=== PATIENT | male | born 1990 | race Caucasian/White ===

== ENCOUNTER 2016-07-03 15:54 | Emergency (ER) | payer OTHER ==
[~2016-07-03] VITALS: Ht 175.3 cm; Wt 71.5 kg
[2016-07-03 16:03] VITALS: TEMP 36.5; Ht 175.3 cm; Wt 71.5 kg
--- NOTE | 2016-07-03 17:29 | EMERGENCY ROOM VISIT NOTE ---
History First contact with patient: 16:54 Chief Complaint: ABDOMINAL PAIN Stated Complaint: STOMACH PAIN, BLOATING Nursing Triage Summary: abd pain since sat night, c/o bloating and nausea, normal bm yesterday History of Present Illness The patient is a 25 year old male who presents to the Emergency Room with complaints of 4 day hx of abdominal pain. Patient reports initial symptoms started 06/30 with generalized abdominal pain, reflux symptoms. Pain was constant 5-6 /10 pain worse with movement, bending over. no association with eating. 07/01, worsening abdominal pain ,nausea, bodyache, chills ( no fever). By that evening symptoms resolved except for abdominal pain, nausea, and dec'd appetite. He tried Ibuprofen 600 mg with minimal relief. Patient went initially to [place] for evaluation. He was given Mg sulfate, Zofran and then sent home. Today his pain worsened in intensity up to 8/10 intensity and his more localized to the left of umbilicus down towards LLQ in addition to RLQ pain. NO change in stool, no urinary symptoms, upper respiratory symptoms. Review of Systems See HPI for pertinent positives & negatives. A total of 10 systems reviewed and were otherwise negative. Past Medical/Surgical History Medical Problems: (1) No chronic problems Prostatitis Social History Smoking Status: Never Smoker Current/Historical Medications No Active Prescriptions or Reported Meds Allergies Coded Allergies: No Known Allergies (Unverified , 07/03/16) Physical Exam Vital Signs Date Time Temp Pulse Resp B/P Pulse Ox O2 Delivery O2 Flow Rate FiO2 07/03/16 19:26 50 16 107/66 98 Room Air 07/03/16 17:53 59 16 118/78 99 Room Air 07/03/16 16:03 36.5 77 18 121/72 96 Room Air Physical Exam GENERAL: alert, well appearing, well nourished, no distress, non-toxic EYE EXAM: normal conjunctiva, PERRL and EOM's grossly intact OROPHARYNX: no exudate, no erythema, lips, buccal mucosa, and tongue normal and mucous membranes are moist NECK: supple, no nuchal rigidity, no adenopathy, non-tender LUNGS: Clear to auscultation. Normal chest wall mechanics HEART: no murmurs, S1 normal and S2 normal ABDOMEN: abdomen soft, mod tenderness to palpation LLQ , normo-active bowel sounds, no masses, no rebound or guarding. SKIN: no rashes and no bruising UPPER EXTREMITIES: upper extremities are grossly normal. LOWER EXTREMITIES: No pitting edema. Medical Decision & Procedures ER Provider Diagnostic Interpretation: ABDOMEN AND PELVIS CT WITHOUT CONTRAST CT DOSE: 504.67 mGy.cm HISTORY: LLQ Left flank pain TECHNIQUE: Multiaxial CT images of the abdomen and pelvis were performed without the use of intravenous and oral contrast according to the standard department stone protocol. COMPARISON STUDY: None. FINDINGS: The lung bases are clear. The unenhanced liver, gallbladder, spleen, pancreas, and adrenal glands are unremarkable. No renal stones or hydronephrosis. There is suboptimal evaluation for bowel pathology due to the lack of intravenous and oral contrast. However, there is no definite bowel wall thickening or obstruction. Normal appendix. Tiny fat-containing umbilical hernia. The pelvic organs are unremarkable. No suspicious lytic or blastic osseous lesions. IMPRESSION: No renal stones or hydronephrosis. Laboratory Results 07/03/16 17:53 Red Blood Count 4.93, Mean Corpuscular Volume 85.4, Mean Corpuscular Hemoglobin 30.6, Mean Corpuscular Hemoglobin Concent 35.9, Mean Platelet Volume 10.0, Neutrophils (%) (Auto) 50.1, Lymphocytes (%) (Auto) 34.4, Monocytes (%) (Auto) 12.6, Eosinophils (%) (Auto) 2.3, Basophils (%) (Auto) 0.4, Neutrophils # (Auto ) 2.39, Lymphocytes # (Auto) 1.64, Monocytes # (Auto) 0.60, Eosinophils # (Auto ) 0.11, Basophils # (Auto) 0.02 07/03/16 17:53 Test 07/03/16 17:50 07/03/16 17:53 Urine Color YELLOW Urine Appearance CLEAR (CLEAR) Urine pH 7.5 (4.5-7.5) Urine Specific [place] 1.024 (1.000-1.030) Urine Protein NEG (NEG) Urine Glucose (UA) NEG (NEG) Urine Ketones NEG (NEG) Urine Occult Blood NEG (NEG) Urine Nitrite NEG (NEG) Urine Bilirubin NEG (NEG) Urine Urobilinogen NEG (NEG) Urine Leukocyte Esterase NEG (NEG) White Blood Count 4.77 K/uL (4.8-10.8) Red Blood Count 4.93 M/uL (4.7-6.1) Hemoglobin 15.1 g/dL (14.0-18.0) Hematocrit 42.1 % (42-52) Mean Corpuscular Volume 85.4 fL (80-100) Mean Corpuscular Hemoglobin 30.6 pg (25-34) Mean Corpuscular Hemoglobin Concent 35.9 g/dl (32-36) Platelet Count 173 K/uL (130-400) Mean Platelet Volume 10.0 fL (7.4-10.4) Neutrophils (%) (Auto) 50.1 % Lymphocytes (%) (Auto) 34.4 % Monocytes (%) (Auto) 12.6 % Eosinophils (%) (Auto) 2.3 % Basophils (%) (Auto) 0.4 % Neutrophils # (Auto) 2.39 K/uL (1.4-6.5) Lymphocytes # (Auto) 1.64 K/uL (1.2-3.4) Monocytes # (Auto) 0.60 K/uL (0.11-0.59) Eosinophils # (Auto) 0.11 K/uL (0-0.5) Basophils # (Auto) 0.02 K/uL (0-0.2) RDW Standard Deviation 37.3 fL (36.4-46.3) RDW Coefficient of Variation 12.0 % (11.5-14.5) Immature Granulocyte % (Auto) 0.2 % Immature Granulocyte # (Auto) 0.01 K/uL (0.00-0.02) Anion Gap 7.0 mmol/L (3-11) Est Creatinine Clear Calc Drug Dose 102.7 ml/min Estimated GFR () 107.6 Estimated GFR (Non- 92.8 BUN/Creatinine Ratio 13.3 (10-20) Calcium Level 9.0 mg/dl (8.5-10.1) Total Bilirubin 0.4 mg/dl (0.2-1) Direct Bilirubin mg/dl (0-0.2) Aspartate Amino Transf (AST/SGOT) 25 U/L (15-37) Alanine Aminotransferase (ALT/SGPT) 23 U/L (12-78) Alkaline Phosphatase 66 U/L (45-117) Total Protein 7.4 gm/dl (6.4-8.2) Albumin 3.9 gm/dl (3.4-5.0) Lipase 125 U/L (73-393) Chemistry Specimen Hemolysis Medications Administered Medications (Trade) Dose Ordered Sig/[place] Route Start Time Stop Time Status Last Admin Dose Admin Ketorolac Tromethamine 10 mg 10 mg NOW STAT IV 07/03/16 18:02 07/03/16 18:05 DC 07/03/16 18:49 10 MG Sodium Chloride (Nss 1000ml) 1,000 ml @ 125 mls/hr Q8H ONCE IV 07/03/16 18:15 07/03/16 20:23 DC 07/03/16 18:48 125 MLS/HR Ondansetron HCl (Zofran 8mg Iv) 4 mg NOW ONCE IV 07/03/16 18:15 07/03/16 18:16 DC 07/03/16 18:48 4 MG Medical Decision Differential diagnoses includes but is not limited to gastritis, peptic ulcer disease, GERD, gallbladder disease, pancreatitis, small bowel obstruction, acute coronary syndrome, pericarditis, ischemic bowel, irritable bowel disease, irritable bowel syndrome, appendicitis, diverticulitis, malignancy, hernia, urinary tract infection, torsion, , perforation, trauma, infectious. 25 yo M p/w 4 day hx of abdominal pain , n/v ,afebrile, RLQ, LLQ tenderness on exam . -CBC, PRP, UA unremarkable, Lipase negative -CT abdomen: no definite bowel wall thickening or obstruction. Normal appendix. Tiny fat-containing umbilical hernia. The pelvic organs are unremarkable. No suspicious lytic or blastic osseous lesions. No renal stones or hydronephrosis. -Given [place] NS, IV Zofran 4 mg x1, 10 mg IV Toradol x1 -Upon reevaluation, the patient is feeling better. I discussed the findings and the treatment plan with the patient. HE verbalizes agreement and understanding. He was discharged home with outpatient PCP followup Impression Primary Impression: Left lower quadrant pain Departure Information Dispostion Home / Self-Care Condition GOOD Prescriptions No Active Prescriptions or Reported Meds Referrals No Doctor, Assigned (PCP) Patient Instructions My [facility] Resident Tracking Resident Involvement: Resident Care Provided Care Provided: Adult ED
[2016-07-03] MEDS ORDERED: KETOROLAC TROMETHAMINE 30 MG/ML VIAL IV STA (18:02)
[2016-07-03 18:05] LABS: BASO % 0.4 %; BASO ABS # 0.02 K/uL (0-0.2); COMPLETE YES; EOS % 2.3 %; HEMATOCRIT 42.1 % (42-52); IG% 0.2 %; LYMPH % 34.4 %; LYMPH ABS # 1.64 K/uL (1.2-3.4); MEAN CELL VOLUME 85.4 fL (80-100); MEAN CORPUSCULAR HEMOGLOBIN 30.6 pg (25-34); MEAN CORPUSCULAR HGB CONC 35.9 g/dl (32-36); MONO % 12.6 %; NEUT % 50.1 %; PLATELET COUNT 173 K/uL (130-400); RED BLOOD COUNT 4.93 M/uL (4.7-6.1); WHITE BLOOD COUNT 4.77 K/uL (4.8-10.8)
[2016-07-03] MEDS ORDERED: SODIUM CHLORIDE 0.9% 1000ML 1,000 ML IV ONE (18:15)
[2016-07-03] MEDS ORDERED: ONDANSETRON 8 MG/54 ML D5W IV ONE (18:15)
[2016-07-03 18:16] LABS: URINE APPEARANCE CLEAR (CLEAR); URINE BILIRUBIN NEG (NEG); URINE COLOR YELLOW; URINE NITRITE NEG (NEG); URINE PH 7.5 (4.5-7.5); URINE SPECIFIC GRAVITY 1.024 (1.000-1.030); UROBILINOGEN NEG (NEG); ZZUR CULT IF INDIC CLEAN CATCH NO
[2016-07-03 18:24] LABS: MANUAL MICROSCOPIC REQUIRED? NO; REVIEW REQ? NO
--- NOTE | 2016-07-03 18:25 | DIAGNOSTIC IMAGING REPORT ---
ABDOMEN AND PELVIS CT WITHOUT CONTRAST CT DOSE: 504.67 mGy.cm HISTORY: LLQ Left flank pain TECHNIQUE: Multiaxial CT images of the abdomen and pelvis were performed without the use of intravenous and oral contrast according to the standard department stone protocol. COMPARISON STUDY: None. FINDINGS: The lung bases are clear. The unenhanced liver, gallbladder, spleen, pancreas, and adrenal glands are unremarkable. No renal stones or hydronephrosis. There is suboptimal evaluation for bowel pathology due to the lack of intravenous and oral contrast. However, there is no definite bowel wall thickening or obstruction. Normal appendix. Tiny fat-containing umbilical hernia. The pelvic organs are unremarkable. No suspicious lytic or blastic osseous lesions. IMPRESSION: No renal stones or hydronephrosis. Electronically signed by: Eddie Wheeler M.D. 07/03/2016 6:24 PM Dictated Date/Time: 07/03/2016 6:15 PM
[2016-07-03 18:29] LABS: ALKALINE PHOSPHATASE 66 U/L (45-117); ALT/SGPT 23 U/L (12-78); AST/SGOT 25 U/L (15-37); BLOOD UREA NITROGEN 15 mg/dl (7-18); BUN/CREATININE RATIO 13.3 (10-20); CARBON DIOXIDE 28 mmol/L (21-32); CHLORIDE 106 mmol/L (98-107); GLUCOSE 88 mg/dl (70-99); SODIUM 141 mmol/L (136-145)
[2016-07-03 19:26] VITALS: BP 107/66; PULSE 50; O2SAT 98
--- NOTE | 2016-07-03 22:34 | EMERGENCY ROOM VISIT NOTE ---
History Report prepared by Janis: Marcella Baron Under the Supervision of: Dr. Christoph Acosta M.D. First contact with patient: 16:53 Chief Complaint: ABDOMINAL PAIN Stated Complaint: STOMACH PAIN, BLOATING Nursing Triage Summary: abd pain since sat night, c/o bloating and nausea, normal bm yesterday History of Present Illness The patient is a 25 year old male who presents to the Emergency Room with complaints of persistent left lower quadrant abdominal pain that began four days ago. He currently rates his discomfort as a 6/10 in severity. The patient states that when his pain began four days ago he states that his pain was more diffuse. He states that Saturday he began noticing body aches, chills , and nausea. The patient states that he took ibuprofen without relief of his symptoms. He states that by Saturday all his symptoms had resolved except for his abdominal pain. The patient states that now his pain is localized to the left lower quadrant. He states that today his pain worsened rating it as an 8/ 10 in severity. The patient denies any increased pain with eating. He notes a sick contact with the flu recently. He additionally notes persistent abdominal bloating. He denies any testicular or penile problems. Pt denies LOC, headache , fevers, chills, diaphoresis, visual changes, neck pain, chest pain, breathing difficulties, nausea, vomiting, back pain, melena, hematochezia, urinary symptoms, numbness, weakness, lymphadenopathy, rash, or other complaints. Source of History: patient Onset: four days ago Position: abdomen (LLQ) Symptom Intensity: 6/10 Timing: other (persistent) Associated Symptoms: + chills, + nausea Note: Associated Symptoms: body aches, abdominal bloating Review of Systems See HPI for pertinent positives and negatives. A total of ten systems were reviewed and were otherwise negative. Past Medical & Surgical Medical Problems: (1) No chronic problems Family History Cancer Social History Smoking Status: Never Smoker Smokeless Tobacco Use: No Alcohol Use: occasionally Marital Status: in relationship Housing Status: lives with family Occupation Status: [employer] student Current/Historical Medications No Active Prescriptions or Reported Meds Allergies Coded Allergies: No Known Allergies (Unverified , 07/03/16) Physical Exam Vital Signs Date Time Temp Pulse Resp B/P Pulse Ox O2 Delivery O2 Flow Rate FiO2 07/03/16 19:26 50 16 107/66 98 Room Air 07/03/16 17:53 59 16 118/78 99 Room Air 07/03/16 16:03 36.5 77 18 121/72 96 Room Air Physical Exam GENERAL: Awake, alert, well-appearing, in no distress HENT: Normocephalic, atraumatic. Oropharynx unremarkable. EYES: Normal conjunctiva. Sclera non-icteric. NECK: Supple. No nuchal rigidity. FROM. No JVD. RESPIRATORY: Clear to auscultation. CARDIAC: Regular rate, normal rhythm. Extremities warm and well perfused. Pulses equal. ABDOMEN: Mild right lower quadrant tenderness to palpation, moderate left lower tenderness to palpation. Soft, non-distended. No rebound or guarding. No masses. RECTAL: Deferred. MUSCULOSKELETAL: Chest examination reveals no tenderness. The back is symmetrical on inspection without obvious abnormality. There is no CVA tenderness to palpation. No joint edema. LOWER EXTREMITIES: Calves are equal size bilaterally and non-tender. No edema. No discoloration. NEURO: Normal sensorium. No sensory or motor deficits noted. SKIN: No rash or jaundice noted. Medical Decision & Procedures ER Provider Diagnostic Interpretation: CT: Radiology results as stated below per my review and radiologist interpretation ABDOMEN AND PELVIS CT WITHOUT CONTRAST CT DOSE: 504.67 mGy.cm HISTORY: LLQ Left flank pain TECHNIQUE: Multiaxial CT images of the abdomen and pelvis were performed without the use of intravenous and oral contrast according to the standard department stone protocol. COMPARISON STUDY: None. FINDINGS: The lung bases are clear. The unenhanced liver, gallbladder, spleen, pancreas, and adrenal glands are unremarkable. No renal stones or hydronephrosis. There is suboptimal evaluation for bowel pathology due to the lack of intravenous and oral contrast. However, there is no definite bowel wall thickening or obstruction. Normal appendix. Tiny fat-containing umbilical hernia. The pelvic organs are unremarkable. No suspicious lytic or blastic osseous lesions. IMPRESSION: No renal stones or hydronephrosis. Electronically signed by: Eddie Wheeler M.D. 07/03/2016 6:24 PM Dictated Date/Time: 07/03/2016 6:15 PM Laboratory Results 07/03/16 17:53 Red Blood Count 4.93, Mean Corpuscular Volume 85.4, Mean Corpuscular Hemoglobin 30.6, Mean Corpuscular Hemoglobin Concent 35.9, Mean Platelet Volume 10.0, Neutrophils (%) (Auto) 50.1, Lymphocytes (%) (Auto) 34.4, Monocytes (%) (Auto) 12.6, Eosinophils (%) (Auto) 2.3, Basophils (%) (Auto) 0.4, Neutrophils # (Auto ) 2.39, Lymphocytes # (Auto) 1.64, Monocytes # (Auto) 0.60, Eosinophils # (Auto ) 0.11, Basophils # (Auto) 0.02 07/03/16 17:53 Test 07/03/16 17:50 07/03/16 17:53 Urine Color YELLOW Urine Appearance CLEAR (CLEAR) Urine pH 7.5 (4.5-7.5) Urine Specific [place] 1.024 (1.000-1.030) Urine Protein NEG (NEG) Urine Glucose (UA) NEG (NEG) Urine Ketones NEG (NEG) Urine Occult Blood NEG (NEG) Urine Nitrite NEG (NEG) Urine Bilirubin NEG (NEG) Urine Urobilinogen NEG (NEG) Urine Leukocyte Esterase NEG (NEG) White Blood Count 4.77 K/uL (4.8-10.8) Red Blood Count 4.93 M/uL (4.7-6.1) Hemoglobin 15.1 g/dL (14.0-18.0) Hematocrit 42.1 % (42-52) Mean Corpuscular Volume 85.4 fL (80-100) Mean Corpuscular Hemoglobin 30.6 pg (25-34) Mean Corpuscular Hemoglobin Concent 35.9 g/dl (32-36) Platelet Count 173 K/uL (130-400) Mean Platelet Volume 10.0 fL (7.4-10.4) Neutrophils (%) (Auto) 50.1 % Lymphocytes (%) (Auto) 34.4 % Monocytes (%) (Auto) 12.6 % Eosinophils (%) (Auto) 2.3 % Basophils (%) (Auto) 0.4 % Neutrophils # (Auto) 2.39 K/uL (1.4-6.5) Lymphocytes # (Auto) 1.64 K/uL (1.2-3.4) Monocytes # (Auto) 0.60 K/uL (0.11-0.59) Eosinophils # (Auto) 0.11 K/uL (0-0.5) Basophils # (Auto) 0.02 K/uL (0-0.2) RDW Standard Deviation 37.3 fL (36.4-46.3) RDW Coefficient of Variation 12.0 % (11.5-14.5) Immature Granulocyte % (Auto) 0.2 % Immature Granulocyte # (Auto) 0.01 K/uL (0.00-0.02) Anion Gap 7.0 mmol/L (3-11) Est Creatinine Clear Calc Drug Dose 102.7 ml/min Estimated GFR () 107.6 Estimated GFR (Non- 92.8 BUN/Creatinine Ratio 13.3 (10-20) Calcium Level 9.0 mg/dl (8.5-10.1) Total Bilirubin 0.4 mg/dl (0.2-1) Direct Bilirubin mg/dl (0-0.2) Aspartate Amino Transf (AST/SGOT) 25 U/L (15-37) Alanine Aminotransferase (ALT/SGPT) 23 U/L (12-78) Alkaline Phosphatase 66 U/L (45-117) Total Protein 7.4 gm/dl (6.4-8.2) Albumin 3.9 gm/dl (3.4-5.0) Lipase 125 U/L (73-393) Chemistry Specimen Hemolysis Laboratory results reviewed by me Medications Administered Medications (Trade) Dose Ordered Sig/[place]wood Route Start Time Stop Time Status Last Admin Dose Admin Ketorolac Tromethamine 10 mg 10 mg NOW STAT IV 07/03/16 18:02 07/03/16 18:05 DC 07/03/16 18:49 10 MG Sodium Chloride (Nss 1000ml) 1,000 ml @ 125 mls/hr Q8H ONCE IV 07/03/16 18:15 07/03/16 20:23 DC 07/03/16 18:48 125 MLS/HR Ondansetron HCl (Zofran 8mg Iv) 4 mg NOW ONCE IV 07/03/16 18:15 07/03/16 18:16 DC 07/03/16 18:48 4 MG ED Course 165: The patient was evaluated in room C5. A complete history and physical exam was performed by the family health nurse practitioner. 1801: Ordered Toradol Inj 10 mg IV. 1814: Ordered Zofran 8 mg IV. 1817: The patient was evaluated in room C5. A complete history and physical exam was performed. 1900: I reevaluated the patient and he is resting comfortably. I discussed the exam findings with him and I discussed the treatment plan. He verbalized complete understanding and agreement. He is ready to go home. Medical Decision Triage Nursing notes reviewed. The patient's presentation and history were concerning for abdominal pain. Etiologies such as appendicitis, diverticulitis, obstruction, inflammatory bowel disease, renal colic, PUD, biliary pathology, pancreatitis, mesenteric ischemia, aortic pathology, infections, genitourinary, UTI, perforated viscus, as well as others were entertained. The patient was evaluated. He had mostly lower left tenderness. CBC, UA, chem panel, LFTs and lipase were negative. CT imaging was performed. There is no evidence of colitis, diverticulitis, appendicitis or other emergent pathology. He did receive Toradol and was feeling much better on reassessment. I discussed conservative management. He noted some flulike symptoms. This may be some mesenteric adenitis like issues although there was any significant CT findings. There is no emergent pathology noted. The patient is stable for discharge. By the evaluation outlined above other emergent etiologies such as those listed in the differential, as well as others, were deemed relatively unlikely. The patient was informed about the findings as listed above. All questions were answered and he was pleased with the treatment. Return instructions were outlined and the patient was discharged in stable condition. The patient was referred to [facility] for follow-up for a recheck of the current condition. The chart was completed utilizing [employer] Speech voice recognition software. Grammatical errors, random word insertions, pronoun errors, and incomplete sentences are an occasional consequence of this system due to software limitations, ambient noise, and hardware issues. Any formal questions or concerns about the content, text, or information contained within the body of this dictation should be directly addressed to the physician for clarification. Impression Primary Impression: Left lower quadrant pain Scribe Attestation The scribe's documentation has been prepared under my direction and personally reviewed by me in its entirety. I confirm that the note above accurately reflects all work, treatment, procedures, and medical decision making performed by me. Departure Information Dispostion Home / Self-Care Prescriptions No Active Prescriptions or Reported Meds Referrals No Doctor, Assigned (PCP) Forms HOME CARE DOCUMENTATION FORM, IMPORTANT VISIT INFORMATION Patient Instructions My [facility] Additional Instructions ABDOMINAL PAIN INSTRUCTIONS: Ibuprofen(Motrin, Advil) may be used for fever or pain. Use 600mg every six hours as needed. Take with food. Avoid using more than 2400mg in a 24 hour period. Do not use 2400mg per day for more than three consecutive days without physician direction. Prolonged inappropriate use can lead to stomach upset or ulcers. (AND/OR) Acetaminophen(Tylenol) may be used for fever or pain. Use 1000mg every six hours as needed. Avoid using more than 4000mg in a 24 hour period. Rest and drink plenty of fluids as tolerated. Slow sips of water or sports drinks are recommended instead of large amounts all at once. Continue current medications. Once your stomach is settled start with a clear liquid diet (jello, soup broth, etc.) and then advance as tolerated. You should avoid full, heavy meals for about 24 hrs from the time your symptoms resolved. Return to the ER immediately for worsening or persistent abdominal pain, vomiting, fevers, chest pains, difficulty breathing, black or bloody stools, worsening of your condition, or as needed.
== END 2016-07-03 19:30 | disposition home or self-care (01) ==
LOC: EDSEX 15:56 → C.EDB 15:56 → C.EDC 19:30
DX: R10.32 Left lower quadrant pain (principal)

== ENCOUNTER 2016-09-28 19:28 | Emergency (ER) | payer OTHER ==
[~2016-09-28] VITALS: Ht 175.3 cm; Wt 71.3 kg
[2016-09-28 19:30] VITALS: TEMP 36.8; Ht 175.3 cm; Wt 71.3 kg
[2016-09-28 19:57] VITALS: O2SAT 98
[2016-09-28 20:20] LABS: BASO % 0.5 %; BASO ABS # 0.04 K/uL (0-0.2); COMPLETE YES; EOS % 4.9 %; HEMATOCRIT 44.3 % (42-52); IG% 0.1 %; LYMPH % 35.7 %; LYMPH ABS # 2.63 K/uL (1.2-3.4); MEAN CELL VOLUME 86.7 fL (80-100); MEAN CORPUSCULAR HEMOGLOBIN 29.5 pg (25-34); MEAN CORPUSCULAR HGB CONC 34.1 g/dl (32-36); MEAN PLATELET VOLUME 10.1 fL (7.4-10.4); MONO % 9.8 %; PLATELET COUNT 181 K/uL (130-400); RED BLOOD COUNT 5.11 M/uL (4.7-6.1); WHITE BLOOD COUNT 7.36 K/uL (4.8-10.8)
[2016-09-28 20:33] LABS: PARTIAL THROMBOPLASTIN RATIO 1.2
[2016-09-28] MEDS ORDERED: SODIUM CHLORIDE 0.9% 500ML 500 ML IV STA (20:37)
[2016-09-28] MEDS ORDERED: KETOROLAC TROMETHAMINE 30 MG/ML VIAL IV STA (20:37)
[2016-09-28 20:38] LABS: ALT/SGPT 22 U/L (12-78); AST/SGOT 15 U/L (15-37); BLOOD UREA NITROGEN 17 mg/dl (7-18); BUN/CREATININE RATIO 17.3 (10-20); CALCIUM 8.4 mg/dl (8.5-10.1); CARBON DIOXIDE 28 mmol/L (21-32); CHLORIDE 105 mmol/L (98-107); GLUCOSE 91 mg/dl (70-99); POTASSIUM 3.8 mmol/L (3.5-5.1); SODIUM 141 mmol/L (136-145)
[2016-09-28 20:40] LABS: URINE APPEARANCE CLEAR (CLEAR); URINE BILIRUBIN NEG (NEG); URINE COLOR YELLOW; URINE NITRITE NEG (NEG); URINE SPECIFIC GRAVITY 1.023 (1.000-1.030); UROBILINOGEN NEG (NEG)
[2016-09-28 20:42] LABS: MANUAL MICROSCOPIC REQUIRED? NO; REVIEW REQ? NO
[2016-09-28 20:43] LABS: ALB/GLOB RATIO 1.1 (0.9-2); ALKALINE PHOSPHATASE 61 U/L (45-117)
--- NOTE | 2016-09-28 20:57 | DIAGNOSTIC IMAGING REPORT ---
CHEST ONE VIEW PORTABLE HISTORY: EVALUATE RESPIRATORY DISTRESS.DYSPNEA COMPARISON: None. FINDINGS: The lungs are clear. Cardiac silhouette is normal in size. No pleural effusions. No pneumothorax. IMPRESSION: No acute process. Electronically signed by: Eddie Wheeler M.D. 09/28/2016 8:56 PM Dictated Date/Time: 09/28/2016 8:53 PM
[2016-09-28 21:58] VITALS: BP 103/68; PULSE 57; O2SAT 98
--- NOTE | 2016-09-28 23:22 | EMERGENCY ROOM VISIT NOTE ---
History Report prepared by Janis: Lenin Smith Under the Supervision of: Dr. Willie Chirinos D.O. First contact with patient: 19:38 Chief Complaint: SHORTNESS OF BREATH Stated Complaint: SOB, SWEATS, PAIN History of Present Illness The patient is a 26 year old male who presents to the Emergency Room with complaints of constant, sharp abdominal pain beginning early this morning. The patient states that his pain started in his chest, and then radiated to his abdomen. He reports that he also has nausea, a sorethroat, a cough, and rhinorrhea. The patient reports that three days ago he developed a sorethroat, headache, fever of 104 degrees, and muscular aches. He notes that yesterday his fever went down to 97 degrees, and his headache went away, but he states that he then developed neck stiffness which only lasted for less than a day. The patient states that he is able to move his neck without discomfort today. He has no neck pain today. No headache today. He reports that he has tried taking Tylenol, and it did not help. The patient notes that movement does not bother him. He denies vomiting, diarrhea, urinary symptoms, arm pain, jaw pain, ear pain, and edema to the calf. The patient also denies being around sick people, recent trips, and the history of: hypertension, hypercholesteremia, heart disease, diabetes mellitus, and family members dying at a young age. Source of History: patient Onset: this morning Position: abdomen Quality: sharp Timing: constant Associated Symptoms: + sorethroat, + cough, + nausea, No vomiting, No diarrhea, No urinary symptoms Note: Associated symptoms: rhinorrhea. He denies arm pain, jaw pain, ear pain, and swelling of the calf. Review of Systems See HPI for pertinent positives & negatives. A total of 10 systems reviewed and were otherwise negative. Past Medical & Surgical Medical Problems: (1) History of kidney stones Family History Cancer Social History Smoking Status: Never Smoker Alcohol Use: occasionally Marital Status: in relationship Housing Status: lives with family Occupation Status: employed Current/Historical Medications No Active Prescriptions or Reported Meds Allergies Coded Allergies: No Known Allergies (Unverified , 09/28/16) Physical Exam Vital Signs Date Time Temp Pulse Resp B/P (MAP) Pulse Ox O2 Delivery O2 Flow Rate FiO2 09/28/16 21:58 57 16 103/68 98 09/28/16 20:55 53 16 108/71 98 Room Air 09/28/16 20:10 53 09/28/16 19:57 98 Room Air 09/28/16 19:57 98 Room Air 09/28/16 19:54 Room Air 98 09/28/16 19:30 36.8 53 18 131/77 98 Room Air Physical Exam GENERAL: Sitting up in bed, alert, well appearing, well nourished, no distress, non-toxic EYE EXAM: normal conjunctiva, PERRL and EOM's grossly intact OROPHARYNX: no exudate, no erythema, lips, buccal mucosa, and tongue normal and mucous membranes are moist NECK: supple, no nuchal rigidity, no adenopathy, non-tender, negative Brudzinski LUNGS: Clear to auscultation. Normal chest wall mechanics HEART: no murmurs, S1 normal and S2 normal ABDOMEN: abdomen soft, non-tender, normo-active bowel sounds, no masses, no rebound or guarding. BACK: Back is symmetrical on inspection and there is no deformity, no midline tenderness, no CVA tenderness. SKIN: no rashes and no bruising UPPER EXTREMITIES: upper extremities are grossly normal. LOWER EXTREMITIES: No pitting edema. NEURO EXAM: Normal sensorium, cranial nerves II-XII intact, normal speech, no weakness of arms, no weakness of legs. Medical Decision & Procedures ER Provider Diagnostic Interpretation: Radiology results as stated below per my review and the radiologist's interpretation: CHEST ONE VIEW PORTABLE HISTORY: EVALUATE RESPIRATORY DISTRESS.DYSPNEA COMPARISON: None. FINDINGS: The lungs are clear. Cardiac silhouette is normal in size. No pleural effusions. No pneumothorax. IMPRESSION: No acute process. Electronically signed by: Eddie Wheeler M.D. 09/28/2016 8:56 PM Dictated Date/Time: 09/28/2016 8:53 PM Laboratory Results 09/28/16 20:10 Red Blood Count 5.11, Mean Corpuscular Volume 86.7, Mean Corpuscular Hemoglobin 29.5, Mean Corpuscular Hemoglobin Concent 34.1, Mean Platelet Volume 10.1, Neutrophils (%) (Auto) 49.0, Lymphocytes (%) (Auto) 35.7, Monocytes (%) (Auto) 9.8, Eosinophils (%) (Auto) 4.9, Basophils (%) (Auto) 0.5, Neutrophils # (Auto) 3.60, Lymphocytes # (Auto) 2.63, Monocytes # (Auto) 0.72, Eosinophils # (Auto) 0.36, Basophils # (Auto) 0.04 09/28/16 20:10 Test 09/28/16 20:10 09/28/16 20:30 White Blood Count 7.36 K/uL (4.8-10.8) Red Blood Count 5.11 M/uL (4.7-6.1) Hemoglobin 15.1 g/dL (14.0-18.0) Hematocrit 44.3 % (42-52) Mean Corpuscular Volume 86.7 fL (80-100) Mean Corpuscular Hemoglobin 29.5 pg (25-34) Mean Corpuscular Hemoglobin Concent 34.1 g/dl (32-36) Platelet Count 181 K/uL (130-400) Mean Platelet Volume 10.1 fL (7.4-10.4) Neutrophils (%) (Auto) 49.0 % Lymphocytes (%) (Auto) 35.7 % Monocytes (%) (Auto) 9.8 % Eosinophils (%) (Auto) 4.9 % Basophils (%) (Auto) 0.5 % Neutrophils # (Auto) 3.60 K/uL (1.4-6.5) Lymphocytes # (Auto) 2.63 K/uL (1.2-3.4) Monocytes # (Auto) 0.72 K/uL (0.11-0.59) Eosinophils # (Auto) 0.36 K/uL (0-0.5) Basophils # (Auto) 0.04 K/uL (0-0.2) RDW Standard Deviation 38.1 fL (36.4-46.3) RDW Coefficient of Variation 11.9 % (11.5-14.5) Immature Granulocyte % (Auto) 0.1 % Immature Granulocyte # (Auto) 0.01 K/uL (0.00-0.02) Activated Partial Thromboplast Time 30.6 SECONDS (21.0-31.0) Partial Thromboplastin Ratio 1.2 D-Dimer 200 ug/L FEU (0-500) Anion Gap 8.0 mmol/L (3-11) Est Creatinine Clear Calc Drug Dose 112.0 ml/min Estimated GFR () 119.9 Estimated GFR (Non- 103.4 BUN/Creatinine Ratio 17.3 (10-20) Calcium Level 8.4 mg/dl (8.5-10.1) Total Bilirubin 0.3 mg/dl (0.2-1) Aspartate Amino Transf (AST/SGOT) 15 U/L (15-37) Alanine Aminotransferase (ALT/SGPT) 22 U/L (12-78) Alkaline Phosphatase 61 U/L (45-117) Troponin I < 0.015 ng/ml (0-0.045) Total Protein 7.4 gm/dl (6.4-8.2) Albumin 3.8 gm/dl (3.4-5.0) Globulin 3.6 gm/dl (2.5-4.0) Albumin/Globulin Ratio 1.1 (0.9-2) Lyme Disease IgM Antibody NEG (NEG) Urine Color YELLOW Urine Appearance CLEAR (CLEAR) Urine pH 6.0 (4.5-7.5) Urine Specific [place] 1.023 (1.000-1.030) Urine Protein NEG (NEG) Urine Glucose (UA) NEG (NEG) Urine Ketones NEG (NEG) Urine Occult Blood NEG (NEG) Urine Nitrite NEG (NEG) Urine Bilirubin NEG (NEG) Urine Urobilinogen NEG (NEG) Urine Leukocyte Esterase NEG (NEG) Laboratory results per my review. Medications Administered Medications (Trade) Dose Ordered Sig/[place] Route Start Time Stop Time Status Last Admin Dose Admin Ketorolac Tromethamine (Toradol Inj) 30 mg NOW STAT IV 09/28/16 20:37 09/28/16 20:38 DC 09/28/16 20:54 30 MG Sodium Chloride 500 ml @ 999 mls/hr Q31M STAT IV 09/28/16 20:37 09/28/16 21:07 DC 09/28/16 20:50 999 MLS/HR ECG Indication: abdominal pain Rate (beats per minute): 49 Rhythm: sinus bradycardia Findings: no ectopy, other (Early R-wave progression, Normal axis) ED Course ED COURSE: Vital signs were reviewed and showed tachycardia and hypertension The patients medical record was reviewed The above diagnostic studies were performed and reviewed. ED treatments and interventions as stated above. 1937: The patient was evaluated in room A12B. A complete history and physical examination was performed. 2036: Ordered Sodium Chloride 500 ml @ 999 mls/hr IV, Toradol Inj 30mg IV 2140: Upon reevaluation, the patient is resting and in no distress. I discussed my findings with the patient and he understands and agrees with the treatment plan. Based on the patients age, coexisting illnesses, exam and lab findings the decision to treat as an outpatient was made. The patient remained stable while under my care. The patient appeared well at the time of discharge. Medical Decision Differential diagnoses includes but is not limited to pneumonia, bronchitis, COPD/Asthma exacerbation, pneumothorax, pulmonary embolism, congestive heart failure, acute coronary syndrome Medication Reconciliation: I attest that I have personally reviewed the patient' s current medication list. Blood pressure screening: Patient was found to have an elevated blood pressure and was referred to their primary doctor for recheck and further treatment. Patient is a 26-year-old male with no sniffing a past medical history that presents the ER for diffuse arthralgias and myalgias associated with sore throat. He notes on Saturday he had a fever of 100.4. Since Saturday he has had no additional fevers. Yesterday he notes that he had a neck which felt tight associated with mild headache. His headache and neck tightness has completely resolved today. Patient does admit to a cough, sore throat and diffuse myalgias started yesterday. Lyme is negative. Chest x-ray is unremarkable. EKG is normal. Troponin is negative with chest pain that has been present for 8 hours. D-dimer was negative. Patient was updated regards to his findings and I do believe that this likely viral URI in nature associated with the sore throat and cough. Nothing to suggest meningitis or encephalitis. No fevers. Discussed with Pt concerning signs and symptoms to watch out for. Pt was instructed to follow up with their PCP and discussed with the patient their option to return to the ED at anytime for persistent or worsening symptoms. The appropriate anticipatory guidance and out-patient management, including indications for return to the emergency department, were explained at length to the patient and understood. Impression Primary Impression: Myalgia Additional Impressions: URI, acute Chest pain Scribe Attestation The scribe's documentation has been prepared under my direction and personally reviewed by me in its entirety. I confirm that the note above accurately reflects all work, treatment, procedures, and medical decision making performed by me. Departure Information Dispostion Home / Self-Care Prescriptions No Active Prescriptions or Reported Meds Referrals No Doctor, Assigned (PCP) Forms HOME CARE DOCUMENTATION FORM, IMPORTANT VISIT INFORMATION Patient Instructions ED Muscle Aching, My [facility] Additional Instructions Please follow up with your primary care doctor with in the next 24 hours. Any worsening of your symptoms, please return to the ED immediately. This includes any fevers persistently elevated greater than 100.4, stiff neck, headache, confusion, weakness, or any other concerning signs or symptoms from your standpoint. Please take Motrin or Tylenol as needed for your myalgias. Problem Qualifiers Additional Impressions: Chest pain Chest pain type: chest pain due to myocardial ischemia Ischemic chest pain type: unspecified angina pectoris type Qualified Codes: I20.9 - Angina pectoris, unspecified
== END 2016-09-28 21:59 | disposition home or self-care (01) ==
LOC: C.EDB 19:30 → C.EDA 21:59
DX: M79.1 Myalgia (principal); J06.9 Acute upper respiratory infection, unspecified; I20.9 Angina pectoris, unspecified